=== PATIENT | female | born 1965 | race African-American/Black ===

== ENCOUNTER 2017-06-21 09:54 | Inpatient (IN) | payer OTHER ==
[~2017-06-21] VITALS: Ht 154.9 cm; Wt 67.2 kg
--- NOTE | ~2017-06-21 | H ---
[facility] [place] [address] HISTORY AND PHYSICAL Name: AGNES HOFF Room #: 202-P ADM IN M.R.#: [id number] Admission: 06/21/17 Attend Phys: Donald Alvarez MD Discharge: Date of : 65 Report #: [id number] THIS REPORT FOR: //name// CC: JAISON physician/PCP Donald Alvarez DATE OF SERVICE: 06/21/2017 CHIEF COMPLAINT: Chest pain. HISTORY OF PRESENT ILLNESS: The patient is a 51-year-old female with no significant past medical history who presented to the Emergency Room complaining of chest pain and lightheadedness. 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 There was no radiation to the arms or to the neck. The patient was also noted to have shortness of breath and dizziness and felt like she is going to pass out. On arrival to the Emergency Room, she received 2 nitroglycerin with mild relief of pain. She still complains of pain. She also has some tenderness over the chest wall. No history of any fever, chills, no weight loss. The patient denies any cough, expectoration. She did have one episode of emesis earlier. PAST MEDICAL HISTORY: No hypertension, no diabetes, no hyperlipidemia, no coronary artery disease. PAST SURGICAL HISTORY: The patient has history of hysterectomy. ALLERGIES: No known drug allergy. HOME MEDICATIONS: None. SOCIAL HISTORY: Smokes 5 cigarettes a day. No history of alcohol abuse or illicit drug abuse. FAMILY HISTORY: Significant for OR. Father at age 52. Grandfather at age 53. No history of any blood clots. REVIEW OF SYSTEMS: CONSTITUTIONAL: No recent weight loss, weight gain. No fever or chills. EYES: No change in vision. THROAT: Denies any sore throat. CARDIOVASCULAR: As above. RESPIRATORY: As above. GASTROINTESTINAL: She did have some nausea and vomiting. No abdominal pain. GENITOURINARY: No dysuria, hematuria. NEUROLOGIC: No focal numbness or weakness of the extremity. [facility] [address] [address] HISTORY AND PHYSICAL Name: LUIS EDUARDOAGNES CARMELINA Room #: 202-P [facility] IN ..#: [id number] Admission: 06/21/17 Attend Phys: Donald Alvarez MD Discharge: Date of : 65 Report #: [id number] PSYCHIATRIC: No anxiety, depression. The 12-point review of system is negative other than the positive and negative dictated in the history of present illness and the review of system. PHYSICAL EXAMINATION: VITAL SIGNS: Reviewed. Blood pressure 123/78, heart rate of 77 per minute, afebrile. GENERAL: The patient is awake and alert, not in acute respiratory distress. EYES: Pupils equal and reactive to light, nonicteric conjunctivae. Throat appears normal. NECK: Supple, no JVD, no bruit, no lymphadenopathy. CARDIOVASCULAR SYSTEM: S1, S2, negative S3, no murmur. CHEST: Bilateral air entry present. Clear on auscultation. ABDOMEN: Soft, bowel sounds present, no mass, no organomegaly, no tenderness. PERIPHERY: No pedal edema. No calf tenderness. Dorsalis pedis 1+. NEUROLOGICAL: No gross motor or sensory deficit. She does have tenderness over the costochondral junction. LABORATORY DATA: Reviewed. EKG showed normal sinus rhythm. There is T-wave inversion in V1, V2 and V4. White count is 8.7, normal hemoglobin, hematocrit and platelets. Potassium 3.4. BUN and creatinine are within normal limit. AST and ALT are within normal limit. Troponin is less than 0.04. IMAGING: Chest x-ray and abdominal x-ray showed no acute abnormality. CT of the chest showed no evidence of any PE. ASSESSMENT AND PLAN: 1. Chest pain. She does have tenderness over the costochondral junction. The pain did get better with nitroglycerin, has T-wave inversion in V1-V4. The patient will be admitted to telemetry. We will have serial cardiac enzymes. Cardiology will be consulted. We will keep her n.p.o. after midnight for possible stress test in the morning. 2. GERD, we will also continue with Protonix p.o. 3. Deep venous thrombosis prophylaxis. She will be on Lovenox 4. Hypokalemia, potassium will be replaced. Treatment plan has been explained to the patient in detail. <ELECTRONICALLY SIGNED> By: Donald Alvarez MD 06/21/17 1454 1344 1412 Donald Alvarez MD /nt
--- NOTE | ~2017-06-21 | S ---
[facility] [place] [address] SURGICAL PATH RPT PROCEDURE Name: CARRI HOFF Room #: 202-P DIS IN M.R.#: [id number] Admission: 06/21/17 Date of : 65 Discharge: 06/24/17 Report #: [id number] Path Case #: [id number] PATHOLOGY REPORT COLLECTION DATE: 06/23/2017 RECEIVED DATE: 06/23/2017 SUBMITTING PHYS: Dr. Yaritza Grimaldo OTHER PHYS: Dr. Donald Alvarez SPECIMEN(S) RECEIVED: A.Gallbladder * * * * * * * * * * * * FINAL DIAGNOSIS: Gallbladder, cholecystectomy: - Mild chronic cholecystitis. (IUV:mgr; 06/27/2017) PATHOLOGIST: Jessica Garrett M.D. REPORT ELECTRONICALLY SIGNED BY: Jessica Garrett M.D. DATE/TIME: 06/27/2017 13:31 * * * * * * * * * * * * GROSS PATHOLOGY: Received in formalin labeled "Carri Hoff gallbladder," is a 7.6 x 2.1 x 0.9 cm, previously opened gallbladder with blue-dobbins, bile-stained serosal surfaces. Opening the gallbladder reveals a velvety, bile-stained mucosa and an average wall thickness of 0.1 cm. Calculi are not present and no masses are noted grossly. Continuous Improvement Analyst sections from the body and fundus are submitted along with the proximal margin in cassette A1. (CAA; 06/24/2017) CLINICAL HISTORY: Biliary dyskinesia INITIAL CPT CODE(S): A; 77100 Professional services performed by [facility] at [facility] [address], [place] [address] Technical services performed by [facility] at [address] [place] [address] [id number] [facility] [address] [place] [address] SURGICAL PATH RPT PROCEDURE Name: CARRI HOFF Room #: 202-P DIS IN M.R.#: [id number] Admission: 06/21/17 Date of : 65 Discharge: 06/24/17 Report #: [id number] Path Case #: [id number] [facility] [address] [address] PHONE: [phone] DIRECTOR: Evelio Love M.D. * * * END OF REPORT * * *
--- NOTE | ~2017-06-21 | O ---
[facility] [place] [address] OPERATIVE REPORT Name: AGNES HOFF Room #: 202-P [facility] IN M.R.#: [id number] Admission: 06/21/17 Attend Phys: Dnoald Alvarez MD Discharge: 06/24/17 Date of : 65 Report #: [id number] THIS REPORT FOR: //name// CC: JAISON physician/PCP Donald Alvarez DATE OF SERVICE: 06/23/2017 PREOPERATIVE DIAGNOSES: Biliary dyskinesia PREOPERATIVE DIAGNOSIS: Biliary dyskinesia. POSTOPERATIVE DIAGNOSES: 1. Chronic cholecystitis with cholesterolosis. 2. Incarcerated umbilical hernia. PROCEDURES PERFORMED: 1. Laparoscopic cholecystectomy with intraoperative cholangiogram. 2. Laparoscopic primary suture repair of an incarcerated umbilical hernia defect. SURGEON: Yaritza Grimaldo MD ANIMAL H[facility]PITAL OFFICE SUPERVISOR: MELISSA Pacheco. ANESTHESIA: General endotracheal anesthesia. ESTIMATED BLOOD LOSS: Minimal (Less than 5 mL). SPECIMENS: Gallbladder to pathology. INDICATIONS: The patient is a 51-year-old -Latvian female who presented with severe lower chest and epigastric abdominal pain. The patient was admitted to the cardiac unit for rule out of a cardiac source of chest pain and has been low probability of any cardiac source. I was therefore asked to evaluate and a thorough investigation in the form of an ultrasound of the abdomen, followed by a PIPIDA scan was obtained. The ultrasound was negative and the PIPIDA scan showed a normal ejection fraction; however, she did have immediate reproduction of all symptoms upon injection of cholecystokinin and signifying a positive study. As such, indication was for laparoscopic cholecystectomy today with intraoperative findings of an incarcerated band of omentum contained within an umbilical hernia defect that required suture repair as well. DESCRIPTION OF PROCEDURE: After explaining the risks, benefits and alternatives of the procedure with the patient in detail in the preoperative holding area and obtaining written consent, the patient was brought to the operating room and [address] [address] OPERATIVE REPORT Name: AGNES HOFF Room #: 202-P [facility] IN M.R.#: [id number] Admission: 06/21/17 Attend Phys: Donald Alvarez MD Discharge: 06/24/17 Date of : 65 Report #: [id number] placed supine on the operating room table. After conducting a thorough timeout procedure, verifying correct patient and procedure, the patient was given general endotracheal anesthesia. Once adequate anesthesia was obtained, her SCDs were hooked up to pneumatic compression device. She was given a preoperative dose of antibiotics in line with the SCIP protocol. The patient's abdomen was prepped and draped in the standard surgical sterile fashion. 5 mL of 0.5% Marcaine with epinephrine were used to anesthetize the skin in the supraumbilical location. A #15 bladed scalpel was used to create a 1 cm transverse skin incision at this location. An 11 mm Visiport was placed over 0 degree 5 mm laparoscope and was introduced through this incision site. Once intra-abdominal placement was verified visually, the obturator for the trocar and laparoscope were both removed and the abdomen was insufflated to 15 mmHg using carbon dioxide gas. The laparoscope was changed to a 10 mm 30-degree laparoscope, which was reintroduced through this trocar. The entire abdomen was evaluated to ensure no injury upon entry. The patient was placed in steep reverse Trendelenburg position with right side elevated and I proceeded to place three additional 5 mm trocars. One was placed in the subxiphoid location and two were placed along the patient's right subcostal margin. All three additional 5 mm ports were placed under direct vision after anesthetizing the skin at each location with 5 mL of 0.5% Marcaine with epinephrine and I created small skin nicks using #15 bladed scalpel. Using the inferolateral most port along the patient's right flank, the fundus of the gallbladder was grasped and retracted cephalad. Careful tedious dissection was undertaken down around the cholecystocystic junction using combination of Harmonic scalpel and Maryland dissector. Once I had attained a critical view, namely the cystic duct emanating from the infundibulum of the gallbladder and coursing the common bile duct as well as cystic artery running the surface of the gallbladder and I created a window behind each, I transected the cystic artery nearest the gallbladder side using Harmonic scalpel for hemostasis. A single clip was now placed along cystic duct nearest the gallbladder side and a small ductotomy was made just distal to this clip using EndoShears. This ductotomy was cannulated using the taut cholangiocatheter setup and an intraoperative cholangiogram was obtained. We had prompt opacification of a tortuous cystic duct with both intra and extrahepatic bile ducts becoming opacified. There was antegrade flow of contrast in the duodenum with no evidence of filling defects or obstruction. The cholangiocatheter setup was now removed, 3 clips were placed along cystic duct nearest common bile duct side and was transected above these clips using the Harmonic scalpel to help seal the end of the duct closed. Further retraction at the infundibulum of the gallbladder in cephalad direction allowed me to elevate the gallbladder off the liver bed using Harmonic scalpel for hemostasis. Once completely detached, the laparoscope was removed, changed to the 5-mm 30-degree laparoscope and it was reintroduced through the right midclavicular 5 mm port. The EndoCatch bag was placed in supraumbilical trocar and the specimen was placed within it and under direct vision. The pursestring suture was drawn and specimen was removed from the abdomen under direct vision. Upon doing so, we saw evidence of an incarcerated band of omentum contained [facility] [address] [place] [address] OPERATIVE REPORT Name: AGNES HOFF Room #: 202-P [facility] IN M.R.#: [id number] Admission: 06/21/17 Attend Phys: Donald Alvarez MD Discharge: 06/24/17 Date of : 65 Report #: [id number] within an umbilical hernia defect approximately 3 cm inferior to my supraumbilical fascial incision. Laparoscopic graspers were used to reduce this band of omentum, showing an approximate 0.5 x 0.5 cm umbilical hernia defect. A 0 PDS suture was now placed into the abdomen through the supraumbilical fascial incision. I proceeded intracorporeally suture this in a [id number] fashion and tied this down performing separate suture repair of an umbilical hernia defect laparoscopically. The needle was removed from the remaining PDS suture, was cut off and passed off the field and the remaining 0 PDS suture was now used to close the supraumbilical fascial incision using the Ruben-Alex suture passer device under direct vision. This was then tied down under direct vision as well. Evaluation of the gallbladder fossa showed complete hemostasis with no spillage. I then irrigated the upper abdomen with 500 mL of normal saline and suctioned the patient dry and the irrigant ran clear. The clips were seated nicely on the cystic duct stump remnant. We had complete hemostasis once again. The abdomen was now fully desufflated and all trocars and laparoscope were removed under direct vision, fully desufflating the abdomen. A 4-0 Monocryl was used in a standard subcuticular fashion for all skin incisions and Dermabond glue was applied to all skin wounds. At the end of the procedure, all instrument, needle and sponge counts were correct. The patient tolerated the procedure without incident, was awakened in the operating room and transitioned to the recovery room in stable condition with no apparent complications. <ELECTRONICALLY SIGNED> By: Yaritza Grimaldo MD, FACS 06/25/17 1113 0932 1101 Yaritza Grimaldo MD, FACS /nt
--- NOTE | ~2017-06-21 | HC ---
[facility] [place] [address] CONSULTATION Name: AGNES HOFF Room #: 202-P ADM IN M.R.#: [id number] Admission: 06/21/17 Attend Phys: Donald Alvarez MD Discharge: Date of : 65 Report #: [id number] THIS REPORT FOR: //name// CC: JAISON physician/PCP Donald Alvarez DATE OF SERVICE: 06/21/2017 REFERRING PROVIDER: Donald Alvarez MD REASON FOR CONSULT: Epigastric pain. HISTORY OF PRESENT ILLNESS: The patient is a 51-year-old -Armenian female who presented to the Emergency Room with epigastric and chest pain. The patient has been admitted and has undergone a thorough workup thus far including negative cardiac workup at this time point. The patient states she did have nausea, vomiting and momentary loss of consciousness and never had anything like that before. The patient has had negative troponins, but persists with right upper quadrant and epigastric abdominal pain. Cardiology received a CT angiogram of the chest that was negative for pulmonary embolism and abdominal x-rays have been negative. As she continues with abdominal pain, I am asked to evaluate. PAST MEDICAL HISTORY: None. HOME MEDICATIONS: None. ALLERGIES: No known drug allergies. SOCIAL HISTORY: The patient smokes half a pack per day and has done so for several years. She drinks alcohol rarely and never to excess and denies illicit drug use. FAMILY HISTORY: Reviewed and noncontributory. REVIEW OF SYSTEMS: GENERAL: The patient denies nocturnal fevers or chills. HEENT: No change in vision, change in hearing. NECK: No swelling or difficulty swallowing. HEART: No chest pain or palpitations. LUNGS: No cough or shortness of breath. ABDOMEN: No prior nausea or vomiting. GENITOURINARY: No dysuria or hematuria. ENDOCRINE: No polyuria, polydipsia. HEMATOLOGIC: No history of bleeding or easy bruising. EXTREMITIES: No history weakness or limited range of motion. [address] [address] CONSULTATION Name: AGNES HFOF Room #: 202-P [facility] IN .R.#: [id number] Admission: 06/21/17 Attend Phys: Donald Alvarez MD Discharge: Date of : 65 Report #: [id number] NEUROLOGIC: No history of syncope or near syncopal episodes. SKIN AND INTEGUMENT: No history of abnormal lesions or moles. PSYCHIATRIC: No history of anxiety or depression. PHYSICAL EXAMINATION: VITAL SIGNS: Temperature 97.4, pulse 60, respirations 18, blood pressure 114/72. She is 5 feet 1 inches tall and weighs 138 pounds. GENERAL: Alert and oriented, in no acute distress. HEENT: Normocephalic, atraumatic. Pupils are equal, round, reactive to light. NECK: Supple, without lymphadenopathy. Trachea midline. HEART: Regular rate and rhythm. LUNGS: Clear to auscultation bilaterally. ABDOMEN: Soft, nontender, nondistended. She does not have reproduction of pain upon palpation and is negative for Morales sign. GENITOURINARY: Normal external female genitalia. EXTREMITIES: No clubbing, cyanosis or edema. NEUROLOGIC: Cranial nerves 2-12 are grossly intact. PSYCHIATRIC: Normal mood and affect. SKIN AND INTEGUMENT: No abnormal lesions or moles. LABORATORY AND X-RAY DATA: CBC showed a white blood cell count of 8.7 thousand, hemoglobin 14.1, platelets 358,000. Her creatinine 0.8. Liver function enzymes are within normal limits. Lipase is normal at 120. Her BNP is normal at 124. Three-view abdominal x-ray shows a nonspecific bowel gas pattern. CT angiogram of the chest shows no pulmonary embolism. Troponins have been negative. ASSESSMENT AND PLAN: A 51-year-old -Armenian female who presented with substernal chest pain radiating into the epigastrium and right upper quadrant as well as in her mid back that began suddenly. This was associated with nausea and vomiting and brief loss of consciousness. The patient has undergone a thorough workup thus far which has been negative to this time point. I will obtain an ultrasound of the abdomen to assess for biliary abnormalities and if this shows gallstones, I would suspect that her symptoms were secondary to biliary colic and we would proceed with laparoscopic cholecystectomy. If the patient's ultrasound is normal, I would then obtain a PIPIDA scan with ejection fraction to see if she has a low ejection fraction or reproduction of symptoms upon injection of cholecystokinin, either of which would signify a biliary source of her pain. In either situation, we would also proceed to the operating room for laparoscopic cholecystectomy for definitive management. I sincerely appreciate this consult. I will follow closely and leave any further recommendations in the patient's chart as appropriate. <ELECTRONICALLY SIGNED> By: Yaritza Grimaldo MD, FACS 06/23/17 1138 1636 09 Yaritza Grimaldo MD, FACS /nt
--- NOTE | ~2017-06-21 | EKG ---
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 : 1965 Requested By: Stanley Solano Order Number: [id number] MD: Kyree Louis Measurements Intervals [place] Rate: 77 P: 45 AR: 172 QRS: 36 QRSD: 82 T: 6 QT: 424 QTc: 480 Interpretive Statements Sinus rhythm Borderline T abnormalities, anterior leads Borderline prolonged QT interval Compared to ECG 08/09/2015 17:38:30 Ventricular premature complex(es) no longer present T-wave abnormality still present Electronically Signed On 06-21-2017 17:46:08 CDT by Kyree Louis [email or web address] <ELECTRONICALLY SIGNED> By: Kyree Louis MD, [facility] 06/21/17 1746 1006 1006 Kyree Louis MD, [facility] /EPI
[~2017-06-21 09:54] MED LIST: BACTRIM DS TAB1 EACH PO; NOHOMEMEDICATIONS
[2017-06-21 10:02] VITALS: BP 175/102
[2017-06-21 10:13] LABS: BASOPHILS 0.5 % (0.0-2.0); EOSINOPHILS 3.5 % (0.0-3.0); HEMATOCRIT 41.9 % (37.0-47.0); HEMOGLOBIN 14.1 gm/dL (12.0-15.0); LYMPHOCYTES 21.4 % (24.0-44.0); MCH 30.2 pg (26.0-34.0); MCHC 33.5 g/dL (28.0-37.0); MCV 90.1 fL (80.0-100.0); MONOCYTES 6.2 % (1.0-8.0); PLATELET COUNT 358 thou/uL (150-400); POLYS 68.4 % (36.0-66.0); RBC 4.65 mil/uL (4.20-5.00); RDW 13.6 % (10.5-14.5); WBC 8.7 thou/uL (4.0-11.0)
[2017-06-21 10:23] LABS: ANION GAP 6 mmol/L (7-16); BUN 17 mg/dL (7-18); CALCIUM 9.3 mg/dL (8.5-10.1); CHLORIDE 108 mmol/L (98-107); CO2 25 mmol/L (21-32); CREATININE 0.8 mg/dL (0.6-1.0); GLUCOSE 97 mg/dL (74-106); POTASSIUM 3.4 mmol/L (3.5-5.1); SODIUM 139 mmol/L (136-145)
[2017-06-21 10:31] LABS: ALBUMIN 3.6 g/dL (3.4-5.0); LIPASE 120 U/L (73-393); SGOT 17 U/L (15-37); SGPT 20 U/L (30-65); TOTAL BILIRUBIN 0.3 mg/dL (<0.1-1.0); TOTAL PROTEIN 7.8 g/dL (6.4-8.2); TROPONIN-I < 0.04 ng/mL (<0.06)
[2017-06-21 12:36] VITALS: BP 175/102
[2017-06-21 13:53] VITALS: BP 123/78
[2017-06-21 14:48] VITALS: BP 114/72
[2017-06-21 19:32] VITALS: BP 116/72
[2017-06-21 23:09] VITALS: BP 131/79
[2017-06-22 04:21] VITALS: BP 145/77
[2017-06-22 04:28] LABS: HEMOGLOBIN 12.2 gm/dL (12.0-15.0); MCH 30.8 pg (26.0-34.0); MCHC 33.8 g/dL (28.0-37.0); RBC 3.95 mil/uL (4.20-5.00); RDW 13.6 % (10.5-14.5); WBC 7.2 thou/uL (4.0-11.0)
[2017-06-22 04:40] LABS: ALBUMIN 2.9 g/dL (3.4-5.0); ANION GAP 7 mmol/L (7-16); BUN 19 mg/dL (7-18); CALCIUM 8.6 mg/dL (8.5-10.1); CHLORIDE 109 mmol/L (98-107); CHOLESTEROL 176 mg/dL (<200); CO2 25 mmol/L (21-32); CREATININE 0.8 mg/dL (0.6-1.0); GLUCOSE 104 mg/dL (74-106); HDL CHOLESTEROL 32 mg/dL (>40); LDL CHOLESTEROL 103 mg/dL (<100); SGOT 12 U/L (15-37); SGPT 17 U/L (30-65); SODIUM 141 mmol/L (136-145); TC:HDL 5.5 Ratio (Not establshd); TOTAL BILIRUBIN < 0.1 mg/dL (<0.1-1.0); TOTAL PROTEIN 6.6 g/dL (6.4-8.2); TRIGLYCERIDE 208 mg/dL (<150); VLDL 42 mg/dL (<40)
[2017-06-22 04:47] LABS: SERUM ASSESSMENT Clear
[2017-06-22 07:46] VITALS: BP 113/66; BP 13/66
[2017-06-22] MEDS ORDERED: PROTONIX40 M1 PO (10:37)
[2017-06-22] MEDS ORDERED: ADULT LOW DOSE81 MG PO (10:37)
[2017-06-22 13:11] LABS: URINE BILIRUBIN NEGATIVE (Negative); URINE BLOOD 1+ (Negative); URINE CLARITY CLEAR; URINE COLOR YELLOW; URINE GLUCOSE-RANDOM* NEGATIVE (Negative); URINE KETONES NEGATIVE (Negative); URINE LEUKOCYTES-REFLEX NEGATIVE (Negative); URINE NITRITE-REFLEX NEGATIVE (Negative); URINE PROTEIN (DIPSTICK) NEGATIVE (Negative); URINE SPECIFIC GRAVITY >= 1.030 (1.005-1.035); URINE UROBILINOGEN 0.2 E.U./dl (0.2-1.0)
[2017-06-22 13:21] LABS: SQUAMOUS 0-3 Few /LPF (0-3)
[2017-06-22 13:22] LABS: BACTERIA-REFLEX 1-9 Few /HPF (None Seen); CASTS None Seen /LPF (None Seen); CRYSTALS None Seen /LPF (None Seen); URINE RBC 0-2 Rare /HPF (0-2); URINE WBC-REFLEX 0-5 Rare /HPF (0-5)
[2017-06-22 16:28] VITALS: BP 136/93
[2017-06-22 19:42] VITALS: BP 122/61
[2017-06-23 05:49] VITALS: BP 117/60
[2017-06-23 08:09] VITALS: BP 116/76
[2017-06-23 11:49] VITALS: BP 108/75
[2017-06-23 13:07] VITALS: BP 134/81
[2017-06-23 19:18] VITALS: BP 124/79
[2017-06-24 00:24] VITALS: BP 100/68
[2017-06-24 03:11] LABS: HEMATOCRIT 39.8 % (37.0-47.0); HEMOGLOBIN 13.4 gm/dL (12.0-15.0); MCH 29.8 pg (26.0-34.0); MCHC 33.5 g/dL (28.0-37.0); MCV 88.9 fL (80.0-100.0); RBC 4.48 mil/uL (4.20-5.00); RDW 13.2 % (10.5-14.5); WBC 16.3 thou/uL (4.0-11.0)
[2017-06-24 03:23] LABS: CALCIUM 9.4 mg/dL (8.5-10.1); CREATININE 0.9 mg/dL (0.6-1.0); POTASSIUM 4.2 mmol/L (3.5-5.1)
[2017-06-24 04:23] VITALS: BP 118/78
[2017-06-24 08:00] VITALS: BP 104/69
[2017-06-24 10:21] VITALS: BP 104/69
[2017-06-24] MEDS ORDERED: HYDROCODON-ACE1 EAC7 PO (10:53)
== END 2017-06-24 12:51 | disposition home or self-care (01) | DRG 419 ==
LOC: ER 09:54 → EROBS 11:07 → 2N 11:07 → ENTRNSPT 06-24 12:37 → EDTRNSPTSTS 06-24 12:40 → 2N 06-24 12:51
PROVIDERS: Physician Assistant; Surgery
PROC: 0DJ08ZZ Inspection of Upper Intestinal Tract, Via Natural or Artificial Opening Endoscopic (ICD-10-PCS; principal; 2017-06-22)
PROC: 0FT44ZZ Resection of Gallbladder, Percutaneous Endoscopic Approach (ICD-10-PCS; 2017-06-23)
PROC: BF121ZZ Fluoroscopy of Gallbladder using Low Osmolar Contrast (ICD-10-PCS; 2017-06-23)
PROC: 0WQF4ZZ Repair Abdominal Wall, Percutaneous Endoscopic Approach (ICD-10-PCS; 2017-06-23)
DX: K82.8 Other specified diseases of gallbladder (principal); K81.1 Chronic cholecystitis; K21.9 Gastro-esophageal reflux disease without esophagitis; E87.6 Hypokalemia; K42.9 Umbilical hernia without obstruction or gangrene; E78.00 Pure hypercholesterolemia, unspecified; Z79.82 Long term (current) use of aspirin; Z79.899 Other long term (current) drug therapy; Z82.49 Family history of ischemic heart disease and other diseases of the circulatory system; Z90.710 Acquired absence of both cervix and uterus
CPT/HCPCS: 10194; 50010; 50249; 50411; 50555; 50558; 50962; 51489; 51975; 52265; 53307; 54022; 54118; 55245; 55317; 56462; 56525; 56526; 62110; 62900

== ENCOUNTER 2017-07-20 16:29 | Emergency (ER) | payer OTHER ==
[~2017-07-20] VITALS: Ht 160 cm; Wt 63.5 kg
[~2017-07-20 16:29] MED LIST changes: +ADULT LOW DOSE81 MG PO; +HYDROCODON-ACE1 EAC7 PO; +PROTONIX40 M1 PO
[2017-07-20 18:48] LABS: ABSOLUTE NEUTROPHILS 5.2 thou/uL (1.4-8.2); BASOPHILS 0.8 % (0.0-2.0); EOSINOPHILS 5.1 % (0.0-3.0); HEMATOCRIT 36.9 % (37.0-47.0); HEMOGLOBIN 12.8 gm/dL (12.0-15.0); LYMPHOCYTES 23.9 % (24.0-44.0); MCH 30.9 pg (26.0-34.0); MCHC 34.8 g/dL (28.0-37.0); MCV 88.9 fL (80.0-100.0); MONOCYTES 8.5 % (1.0-8.0); PLATELET COUNT 341 thou/uL (150-400); POLYS 61.7 % (36.0-66.0); RBC 4.15 mil/uL (4.20-5.00); RDW 13.2 % (10.5-14.5); WBC 8.4 thou/uL (4.0-11.0)
[2017-07-20 18:56] LABS: ANION GAP 6 mmol/L (7-16); BUN 16 mg/dL (7-18); CALCIUM 8.8 mg/dL (8.5-10.1); CHLORIDE 107 mmol/L (98-107); CO2 26 mmol/L (21-32); CREATININE 0.7 mg/dL (0.6-1.0); GLUCOSE 106 mg/dL (74-106); POTASSIUM 3.7 mmol/L (3.5-5.1); SODIUM 139 mmol/L (136-145)
[2017-07-20 19:02] LABS: ALBUMIN 3.3 g/dL (3.4-5.0); DIRECT BILIRUBIN < 0.1 mg/dL (<0.1-0.3); LIPASE 89 U/L (73-393); SGOT 18 U/L (15-37); SGPT 15 U/L (30-65); TOTAL BILIRUBIN 0.3 mg/dL (<0.1-1.0); TOTAL PROTEIN 7.1 g/dL (6.4-8.2)
[2017-07-20] MEDS ORDERED: KEFLEX500 M1 PO (20:07)
[2017-07-20] MEDS ORDERED: IBUPROFEN 600600 M1 PO (20:07)
== END 2017-07-20 20:20 | disposition home or self-care (01) ==
LOC: ER 16:29
PROVIDERS: Nurse Practitioner
DX: L02.211 Cutaneous abscess of abdominal wall (principal); F17.210 Nicotine dependence, cigarettes, uncomplicated; Z90.710 Acquired absence of both cervix and uterus

== ENCOUNTER 2017-08-07 12:14 | Inpatient (IN) | payer OTHER ==
[~2017-08-07] VITALS: Ht 144.8 cm; Wt 69.5 kg
--- NOTE | ~2017-08-07 | EKG ---
[place] [address] [facility] [place] [address] ELECTROCARDIOGRAM REPORT Name: AGNES HOFF Room #: 209-P ADM IN M.R.#: [id number] Admission: 08/07/17 Attend Phys: Carmen Gunter Discharge: Date of : 65 Report #: [id number] THIS REPORT FOR: //name// [facility] ED Test Date: 2017-08-07 Test Time: 12:33:51 Pat Name: AGNES HOFF Department: Room: Gender: F Banquet Lead: Can GARCIA : 1965 Requested By: Arlet Chaves Order Number: [id number] MD: Abhijeet Layne Measurements Intervals [place] Rate: 71 P: 41 FL: 175 QRS: 30 QRSD: 83 T: 19 QT: 391 QTc: 425 Interpretive Statements Sinus rhythm Borderline T wave abnormalities Baseline wander in lead(s) V6 Compared to ECG 06/21/2017 10:06:24 No significant changes Electronically Signed On 08-07-2017 18:42:13 CDT by Abhijeet Layne [email or web address] <ELECTRONICALLY SIGNED> By: Abhijeet Layne MD 08/07/17 1842 1233 1233 Abhijeet Layne MD /JAYSHREE
[~2017-08-07 12:14] MED LIST changes: +IBUPROFEN 600600 M1 PO; +KEFLEX500 M1 PO
[2017-08-07 12:29] VITALS: BP 126/87
[2017-08-07 12:55] LABS: BASOPHILS 0.9 % (0.0-2.0); EOSINOPHILS 3.3 % (0.0-3.0); HEMATOCRIT 37.8 % (37.0-47.0); HEMOGLOBIN 13.1 gm/dL (12.0-15.0); LYMPHOCYTES 23.5 % (24.0-44.0); MCH 30.8 pg (26.0-34.0); MCHC 34.6 g/dL (28.0-37.0); MCV 89.1 fL (80.0-100.0); MONOCYTES 8.7 % (1.0-8.0); PLATELET COUNT 367 thou/uL (150-400); POLYS 63.6 % (36.0-66.0); RBC 4.24 mil/uL (4.20-5.00); RDW 12.9 % (10.5-14.5); WBC 7.9 thou/uL (4.0-11.0)
[2017-08-07 13:03] LABS: ANION GAP 8 mmol/L (7-16); BUN 13 mg/dL (7-18); CALCIUM 9.2 mg/dL (8.5-10.1); CHLORIDE 107 mmol/L (98-107); CO2 26 mmol/L (21-32); CREATININE 0.6 mg/dL (0.6-1.0); GLUCOSE 109 mg/dL (74-106); POTASSIUM 3.7 mmol/L (3.5-5.1); SODIUM 141 mmol/L (136-145)
[2017-08-07 13:12] LABS: TROPONIN-I < 0.04 ng/mL (<0.06)
[2017-08-07 14:06] LABS: CHOLESTEROL 192 mg/dL (<200); HDL CHOLESTEROL 40 mg/dL (>40); LDL CHOLESTEROL 131 mg/dL (<100); TC:HDL 4.8 Ratio (Not establshd); TRIGLYCERIDE 105 mg/dL (<150); VLDL 21 mg/dL (<40)
[2017-08-07 14:10] VITALS: BP 123/87
[2017-08-07 15:10] VITALS: BP 124/78
[2017-08-07 15:20] VITALS: BP 140/72
[2017-08-07 19:33] VITALS: BP 124/65
[2017-08-08 00:29] VITALS: BP 126/98
[2017-08-08 04:08] VITALS: BP 127/73
[2017-08-08 07:35] VITALS: BP 117/80
[2017-08-08 11:30] VITALS: BP 128/76
[2017-08-08 15:40] VITALS: BP 110/62
[2017-08-08 19:41] VITALS: BP 125/77
[2017-08-09 00:02] VITALS: BP 143/87
[2017-08-09 04:35] VITALS: BP 145/84
[2017-08-09 08:25] VITALS: BP 133/89
[2017-08-09] MEDS ORDERED: HYDROCODON-ACE1 EAC7 PO (08:45)
[2017-08-09 12:30] VITALS: BP 119/84
[2017-08-09 16:15] VITALS: BP 125/82
[2017-08-09 20:42] VITALS: BP 125/82
== END 2017-08-09 21:42 | disposition home or self-care (01) | DRG 392 ==
LOC: ER 12:14 → EROBS 13:37 → 2N 13:37
PROVIDERS: Emergency Medicine; Hospitalist
DX: K21.9 Gastro-esophageal reflux disease without esophagitis (principal); F17.210 Nicotine dependence, cigarettes, uncomplicated; Z90.710 Acquired absence of both cervix and uterus; Z82.49 Family history of ischemic heart disease and other diseases of the circulatory system; Z79.899 Other long term (current) drug therapy; Z79.82 Long term (current) use of aspirin; Z90.49 Acquired absence of other specified parts of digestive tract
CPT/HCPCS: 10081

== ENCOUNTER 2017-10-02 18:53 | Emergency (ER) | payer OTHER ==
[~2017-10-02] VITALS: Ht 144.8 cm; Wt 63.5 kg
--- NOTE | ~2017-10-02 | EKG ---
[place] [address] [facility] [place] [address] ELECTROCARDIOGRAM REPORT Name: AGNES HOFF [id number] Admission: 10/02/17 Attend Phys: Discharge: 10/02/17 Date of : 65 Report #: [id number] THIS REPORT FOR: //name// [facility] ED Test Date: 2017-10-02 Test Time: 19:03:37 Pat Name: AGNES HOFF Department: Room: Gender: F Adjunct Faculty Instructor: shi : 1965 Requested By: Adenike Treviño Order Number: [id number] MD: Kyree Louis Measurements Intervals [place] Rate: 84 P: 40 SD: 176 QRS: 11 QRSD: 86 T: 13 QT: 391 QTc: 463 Interpretive Statements Sinus rhythm Probable left atrial enlargement Nonspecific T abnormalities, anterior leads Compared to ECG 08/07/2017 12:33:51 No significant changes Electronically Signed On 10-03-2017 8:43:47 CDT by Kyree Louis [email or web address] <ELECTRONICALLY SIGNED> By: Kyree Louis MD, [facility] 10/03/17 0843 02 02 Kyree Louis MD, [facility] /EPI
[2017-10-02 19:55] LABS: ABSOLUTE NEUTROPHILS 6.5 thou/uL (1.4-8.2); BASOPHILS 0.6 % (0.0-2.0); EOSINOPHILS 3.3 % (0.0-3.0); HEMATOCRIT 36.9 % (37.0-47.0); HEMOGLOBIN 12.7 gm/dL (12.0-15.0); LYMPHOCYTES 21.3 % (24.0-44.0); MCH 30.7 pg (26.0-34.0); MCHC 34.5 g/dL (28.0-37.0); MCV 88.9 fL (80.0-100.0); MONOCYTES 7.9 % (1.0-8.0); PLATELET COUNT 331 thou/uL (150-400); POLYS 66.9 % (36.0-66.0); RBC 4.15 mil/uL (4.20-5.00); RDW 13.9 % (10.5-14.5); WBC 9.6 thou/uL (4.0-11.0)
[2017-10-02] MEDS ORDERED: IBUPROFEN 400400 M2 PO (19:58)
[2017-10-02 20:03] LABS: ANION GAP 6 mmol/L (7-16); BUN 15 mg/dL (7-18); CALCIUM 8.7 mg/dL (8.5-10.1); CHLORIDE 108 mmol/L (98-107); CO2 27 mmol/L (21-32); CREATININE 0.8 mg/dL (0.6-1.0); GLUCOSE 123 mg/dL (74-106); POTASSIUM 3.1 mmol/L (3.5-5.1); SODIUM 141 mmol/L (136-145)
[2017-10-02 20:11] LABS: TROPONIN-I <0.06 ng/mL (<0.06)
== END 2017-10-02 20:44 | disposition home or self-care (01) ==
LOC: ER 18:53
PROVIDERS: Emergency Medicine
DX: M54.12 Radiculopathy, cervical region (principal); F17.210 Nicotine dependence, cigarettes, uncomplicated; Z90.89 Acquired absence of other organs; Z90.710 Acquired absence of both cervix and uterus